=== PATIENT | female | born 1980 | race African-American/Black ===

== ENCOUNTER 2017-03-25 10:26 | Emergency (ER) | payer OTHER ==
[2017-03-25] MEDS ORDERED: HYDROcodone/Acetaminophen 10/325 mg Tablet ONE (11:00)
[2017-03-25] MEDS ORDERED: Azithromycin 250 MG TAB ONE (11:01)
[2017-03-25] MEDS ORDERED: Naproxen 500 MG TAB ONE (11:01)
[2017-03-25] MEDS ORDERED: Neomycin-Polymyxin-Hc 7.5 ML BOT ONE (11:03)
== END 2017-03-25 11:15 | disposition home or self-care (01) ==
LOC: MADERS 10:26
DX: J20.9 Acute bronchitis, unspecified (principal); H60.502 Unspecified acute noninfective otitis externa, left ear; I10 Essential (primary) hypertension; J45.909 Unspecified asthma, uncomplicated; F32.9 Major depressive disorder, single episode, unspecified; Z87.891 Personal history of nicotine dependence; Z79.899 Other long term (current) drug therapy
CPT/HCPCS: 99283

== ENCOUNTER 2017-03-30 12:53 | Emergency (ER) | payer OTHER ==
[2017-03-30] MEDS ORDERED: Ibuprofen 800 MG TAB ONE (13:54)
[2017-03-30] MEDS ORDERED: Ciprofloxacin 500 MG TAB ONE (13:54)
[2017-03-30] MEDS ORDERED: predniSONE 20 MG TAB ONE (13:54)
== END 2017-03-30 14:00 | disposition home or self-care (01) ==
LOC: MADERS 12:53
DX: M26.622 Arthralgia of left temporomandibular joint (principal); J45.909 Unspecified asthma, uncomplicated; I10 Essential (primary) hypertension; F32.9 Major depressive disorder, single episode, unspecified; Z87.891 Personal history of nicotine dependence
CPT/HCPCS: 99283; J7506

== ENCOUNTER 2017-07-03 08:26 | Emergency (ER) | payer OTHER | END 2017-07-03 09:18 | disposition home or self-care (01) | LOC: MADERS 08:26 | DX: L84 Corns and callosities (principal); I10 Essential (primary) hypertension; I73.9 Peripheral vascular disease, unspecified; J45.909 Unspecified asthma, uncomplicated; F32.9 Major depressive disorder, single episode, unspecified; F17.210 Nicotine dependence, cigarettes, uncomplicated; Z76.0 Encounter for issue of repeat prescription | CPT/HCPCS: 99283 ==

== ENCOUNTER 2017-07-15 10:07 | Emergency (ER) | payer OTHER | END 2017-07-15 12:10 | disposition home or self-care (01) | LOC: MADERS 10:07 | DX: J06.9 Acute upper respiratory infection, unspecified (principal); H61.22 Impacted cerumen, left ear; J45.909 Unspecified asthma, uncomplicated; F32.9 Major depressive disorder, single episode, unspecified; F17.210 Nicotine dependence, cigarettes, uncomplicated | CPT/HCPCS: 99283 ==

== ENCOUNTER 2017-08-05 11:29 | Emergency (ER) | payer OTHER | END 2017-08-05 12:20 | disposition home or self-care (01) | LOC: MADERS 11:29 | DX: L84 Corns and callosities (principal); I10 Essential (primary) hypertension; J45.909 Unspecified asthma, uncomplicated; F32.9 Major depressive disorder, single episode, unspecified; F17.210 Nicotine dependence, cigarettes, uncomplicated | CPT/HCPCS: 99283 ==

== ENCOUNTER 2018-07-17 10:18 | Emergency (ER) | payer OTHER | END 2018-07-17 10:40 | disposition home or self-care (01) | LOC: MADERS 10:18 | DX: J45.909 Unspecified asthma, uncomplicated (principal); I10 Essential (primary) hypertension; F17.210 Nicotine dependence, cigarettes, uncomplicated; Z79.899 Other long term (current) drug therapy | CPT/HCPCS: 99284 ==

== ENCOUNTER 2018-09-08 12:40 | Emergency (ER) | payer OTHER | END 2018-09-08 13:30 | disposition home or self-care (01) | LOC: MADERS 12:40 | DX: H66.91 Otitis media, unspecified, right ear (principal); K08.89 Other specified disorders of teeth and supporting structures; G89.29 Other chronic pain; M79.673 Pain in unspecified foot; I10 Essential (primary) hypertension; J45.909 Unspecified asthma, uncomplicated; F32.9 Major depressive disorder, single episode, unspecified; F17.210 Nicotine dependence, cigarettes, uncomplicated; Z79.899 Other long term (current) drug therapy | CPT/HCPCS: 99282 ==

== ENCOUNTER 2018-12-19 07:50 | Emergency (ER) | payer OTHER ==
--- NOTE | 2018-12-19 09:12 | RAD ---
LEFT HAND 3 VIEWS: HISTORY: Hyperextension injury. COMPARISON: None. FINDINGS: There is a round radiopaque foreign object, likely a B-B within the distal radial metaphysis. No acu te displaced fracture or malalignment is appreciated. IMPRESSION: 1. No acute abnormality. 2. Radiopaque likely distal radial metaphysis. POS: [facility]
== END 2018-12-19 08:35 | disposition home or self-care (01) ==
LOC: MADERS 07:50
DX: S63.615A Unspecified sprain of left ring finger, initial encounter (principal); I10 Essential (primary) hypertension; J45.909 Unspecified asthma, uncomplicated; F32.9 Major depressive disorder, single episode, unspecified; F17.210 Nicotine dependence, cigarettes, uncomplicated; Z79.899 Other long term (current) drug therapy; Z79.51 Long term (current) use of inhaled steroids; X58.XXXA Exposure to other specified factors, initial encounter

== ENCOUNTER 2019-05-13 14:39 | Emergency (ER) | payer OTHER | END 2019-05-13 15:10 | disposition left against medical advice (07) | LOC: MADERS 14:39 | DX: Z53.21 Procedure and treatment not carried out due to patient leaving prior to being seen by health care provider (principal) ==

== ENCOUNTER 2019-05-14 09:52 | Emergency (ER) | payer OTHER | END 2019-05-14 10:34 | disposition home or self-care (01) | LOC: MADERS 09:52 | DX: S40.862A Insect bite (nonvenomous) of left upper arm, initial encounter (principal); S40.861A Insect bite (nonvenomous) of right upper arm, initial encounter; S80.862A Insect bite (nonvenomous), left lower leg, initial encounter; S80.861A Insect bite (nonvenomous), right lower leg, initial encounter; K04.7 Periapical abscess without sinus; K02.9 Dental caries, unspecified; W57.XXXA Bitten or stung by nonvenomous insect and other nonvenomous arthropods, initial encounter | CPT/HCPCS: 99283 ==

== ENCOUNTER 2019-05-28 11:08 | Emergency (ER) | payer OTHER | END 2019-05-28 11:45 | disposition home or self-care (01) | LOC: MADERS 11:08 | DX: M62.838 Other muscle spasm (principal); F17.210 Nicotine dependence, cigarettes, uncomplicated; I10 Essential (primary) hypertension; Z79.899 Other long term (current) drug therapy; Z79.01 Long term (current) use of anticoagulants; Z79.51 Long term (current) use of inhaled steroids | CPT/HCPCS: 99281 ==

== ENCOUNTER 2019-12-15 07:58 | Outpatient (CLI) | payer OTHER ==
--- NOTE | 2019-12-15 09:02 | ULT ---
US Renal Bilateral STANDARD HISTORY: Chronic renal disease COMPARISON: None. FINDINGS: The right kidney measures 8.2 cm in length and the left kidney measures 9.6 hemoglobin. No focal mass or hydronephrosis is seen on either side. The urinary bladder is grossly unremarkable. Cortical thickness is normal. There is mild increase in echogenicity of the cortices. IMPRESSION: No evidence of high-grade obstruction.
== END 2019-12-15 07:59 | disposition home or self-care (01) ==
LOC: MADULT 07:58
PROVIDERS: ATTEND Internal Medicine Nephrology
DX: N18.3 Chronic kidney disease, stage 3 (moderate) (principal)
CPT/HCPCS: 76770

== ENCOUNTER 2020-04-14 14:59 | Emergency (ER) | payer OTHER | END 2020-04-14 15:14 | disposition left against medical advice (07) | LOC: MADERS 14:59 | DX: R07.9 Chest pain, unspecified (principal) | CPT/HCPCS: 99284 ==

== ENCOUNTER 2020-04-19 12:27 | Emergency (ER) | payer OTHER ==
--- NOTE | 2020-04-19 13:34 | RAD ---
XR Chest 1 View Portable HISTORY: Chest pain COMPARISON: 04/23/2018 FINDINGS: The heart size is normal. The lungs are well expanded without focal areas of consolidation, pneumothorax or pleural effusions. IMPRESSION: No radiographic evidence of acute cardiopulmonary process.
[2020-04-19 13:54] LABS: ALT (SGPT) 18 U/L (8-55); AST (SGOT) 20 U/L (5-34); Albumin 3.8 g/dL (3.5-5.0); Alkaline Phosphatase 61 U/L (40-110); Anion Gap 14 mmol/L (10-20); BUN (Urea Nitrogen) 17 mg/dL (7.0-18.7); Bilirubin, Total 0.3 mg/dL (0.2-1.2); Calc. Creatinine Clearance 0 mL/min (70-130); Calcium 8.6 mg/dL (7.8-10.44); Carbon Dioxide 23 mmol/L (22-29); Chloride 107 mmol/L (98-107); Estimated GFR-MDRD 65; Globulin 2.9 g/dL (2.4-3.5); Glucose 93 mg/dL (70-105); Potassium 4.1 mmol/L (3.5-5.1); Protein, Total 6.7 g/dL (6.0-8.3); Sodium 140 mmol/L (136-145)
[2020-04-19 14:06] LABS: #Basophils 0.1 thou/uL (0.0-0.2); #Eosinphils 0.4 thou/uL (0.0-0.7); #Lymphocytes 1.2 thou/uL (1.20-3.40); #Monocytes 0.4 thou/uL (0.11-0.59); #Neutrophils 2.8 thou/uL (1.40-6.50); %Basophils 1.1 % (0.0-1.0); %Eosinophils 7.9 % (0.0-10.0); %Lymphocytes 24.8 % (21.0-51.0); %Neutrophils 57.3 % (42.0-75.0); Hemoglobin 12.4 g/dL (12.0-16.0); Mean Corpuscular HGB CONC 31.6 g/dL (32.0-36.0); Mean Platelet Volume 7.7 fL (7.4-10.4); Platelet Count 207 thou/uL (130-400); RBC Distribution Width 12.9 % (11.5-14.5); Red Blood Cell (RBC) Count 4.12 mill/uL (4.20-5.40); White Blood Cell (WBC) Count 4.9 thou/uL (4.8-10.8)
[2020-04-19] MEDS ORDERED: HYDROcodone/Acetaminophen 5/325 mg Tablet ONE (15:19)
[2020-04-19] MEDS ORDERED: Aspirin Chewable 81 MG TAB ONE (15:19)
== END 2020-04-19 15:25 | disposition home or self-care (01) ==
LOC: MADERS 12:27
DX: R07.9 Chest pain, unspecified (principal); R11.10 Vomiting, unspecified
CPT/HCPCS: 71045; 80053; 83880; 84484; 85025; 93005

== ENCOUNTER 2020-08-25 11:43 | Emergency (ER) | payer OTHER ==
[2020-08-25] MEDS ORDERED: predniSONE 20 MG TAB ONE (12:32)
== END 2020-08-25 12:53 | disposition home or self-care (01) ==
LOC: MADERS 11:43
DX: J45.901 Unspecified asthma with (acute) exacerbation (principal); G62.9 Polyneuropathy, unspecified; J45.909 Unspecified asthma, uncomplicated; I12.0 Hypertensive chronic kidney disease with stage 5 chronic kidney disease or end stage renal disease; N18.9 Chronic kidney disease, unspecified; F41.9 Anxiety disorder, unspecified; Z79.51 Long term (current) use of inhaled steroids; Z79.899 Other long term (current) drug therapy
CPT/HCPCS: 99284; J7512; J7620

== ENCOUNTER 2020-09-22 13:02 | Emergency (ER) | payer OTHER ==
[2020-09-23 04:07] LABS: SARS-CoV-2 MS2 Positive; SARS-CoV-2 N Gene Negative; SARS-CoV-2 S Gene Negative; SARS-CoV-2 by NAA Not Detected (NotDetected); SARS-CoV-2 orf1ab Negative
== END 2020-09-22 14:25 | disposition home or self-care (01) ==
LOC: MADERS 13:02
DX: M79.672 Pain in left foot (principal); M79.671 Pain in right foot; G89.29 Other chronic pain; J45.909 Unspecified asthma, uncomplicated; L84 Corns and callosities; I12.9 Hypertensive chronic kidney disease with stage 1 through stage 4 chronic kidney disease, or unspecified chronic kidney disease; N18.9 Chronic kidney disease, unspecified; I73.9 Peripheral vascular disease, unspecified; F41.9 Anxiety disorder, unspecified; Z79.899 Other long term (current) drug therapy; Z79.01 Long term (current) use of anticoagulants
CPT/HCPCS: 87635; 99283; U0003

== ENCOUNTER 2021-03-24 09:14 | Emergency (ER) | payer OTHER | END 2021-03-24 16:21 | disposition home or self-care (01) | LOC: MADERS 09:14 | DX: J45.901 Unspecified asthma with (acute) exacerbation (principal); I12.9 Hypertensive chronic kidney disease with stage 1 through stage 4 chronic kidney disease, or unspecified chronic kidney disease; N18.9 Chronic kidney disease, unspecified; Z79.51 Long term (current) use of inhaled steroids; Z79.899 Other long term (current) drug therapy | CPT/HCPCS: 94640; J7620 ==

== ENCOUNTER 2021-06-16 10:08 | Emergency (ER) | payer OTHER ==
[2021-06-16 10:51] LABS: #Basophils 0.1 thou/uL (0.0-0.2); #Eosinphils 0.2 thou/uL (0.0-0.7); #Lymphocytes 2.1 thou/uL (1.20-3.40); #Monocytes 0.5 thou/uL (0.11-0.59); #Neutrophils 3.1 thou/uL (1.40-6.50); %Basophils 1.1 % (0.0-1.0); %Eosinophils 3.3 % (0.0-10.0); %Lymphocytes 35.5 % (21.0-51.0); %Monocytes 8.2 % (0.0-10.0); %Neutrophils 51.9 % (42.0-75.0); Hemoglobin 12.1 g/dL (12.0-16.0); Mean Corpuscular HGB CONC 32.3 g/dL (32.0-36.0); Mean Corpuscular Hemoglobin 31.4 pg (27.0-31.0); Mean Platelet Volume 7.2 fL (7.4-10.4); Platelet Count 215 thou/uL (130-400); RBC Distribution Width 12.1 % (11.5-14.5); Red Blood Cell (RBC) Count 3.86 mill/uL (4.20-5.40); White Blood Cell (WBC) Count 5.9 thou/uL (4.8-10.8)
[2021-06-16] MEDS ORDERED: Nitroglycerin 2% Ointment 1 INCH/1 GM Packet ONE (10:55)
[2021-06-16] MEDS ORDERED: Sodium Chloride 0.9% 1,000 ML ONE (10:55)
[2021-06-16] MEDS ORDERED: Lidocaine Viscous Sol 2% 15 ml UD Cup ONE (10:56)
[2021-06-16] MEDS ORDERED: Mag-Al Plus 1200 MG/1200 MG/120 MG/30 ML UDCUP ONE (10:56)
[2021-06-16] MEDS ORDERED: Aspirin Chewable 81 MG TAB ONE (10:56)
[2021-06-16 11:00] LABS: BHCG - Serum Negative (NEGATIVE); Pregs Control Background? CLEAR/WHITE (CLR/WHITE); Pregs Control Bar Appear? YES (CONTROL BAR)
[2021-06-16 11:11] LABS: ALT (SGPT) 17 U/L (8-55); AST (SGOT) 22 U/L (5-34); Albumin 3.9 g/dL (3.5-5.0); Alkaline Phosphatase 48 U/L (40-110); Anion Gap 14 mmol/L (10-20); BUN (Urea Nitrogen) 16 mg/dL (7.0-18.7); Bilirubin, Total 0.7 mg/dL (0.2-1.2); CK (CPK) 105 U/L (29-168); Calc. Creatinine Clearance 0 mL/min (70-130); Carbon Dioxide 23 mmol/L (22-29); Chloride 105 mmol/L (98-107); Glucose 80 mg/dL (70-105); Lipase 9 U/L (8-78); Potassium 3.6 mmol/L (3.5-5.1); Protein, Total 6.9 g/dL (6.0-8.3); Sodium 138 mmol/L (136-145)
[2021-06-16 12:12] LABS: Troponin I Less than 0.010 ng/mL (< 0.028)
== END 2021-06-16 12:51 | disposition home or self-care (01) ==
LOC: MADERS 10:08
DX: R07.2 Precordial pain (principal); I12.9 Hypertensive chronic kidney disease with stage 1 through stage 4 chronic kidney disease, or unspecified chronic kidney disease; N18.9 Chronic kidney disease, unspecified; I73.9 Peripheral vascular disease, unspecified; F17.210 Nicotine dependence, cigarettes, uncomplicated; J45.909 Unspecified asthma, uncomplicated
CPT/HCPCS: 71045; 80053; 82550; 83690; 84484; 84703; 85025; 93005; J7050

== ENCOUNTER 2022-02-23 09:33 | Emergency (ER) | payer OTHER | END 2022-02-23 10:20 | disposition home or self-care (01) | LOC: MADERS 09:33 | DX: M79.601 Pain in right arm (principal); G89.29 Other chronic pain; J45.909 Unspecified asthma, uncomplicated; I12.9 Hypertensive chronic kidney disease with stage 1 through stage 4 chronic kidney disease, or unspecified chronic kidney disease; N18.9 Chronic kidney disease, unspecified; F17.210 Nicotine dependence, cigarettes, uncomplicated ==

== ENCOUNTER 2022-05-13 12:59 | Emergency (ER) | payer OTHER ==
[2022-05-13] MEDS ORDERED: Ibuprofen 600 MG TAB ONE (13:20)
[2022-05-13] MEDS ORDERED: Boostrix 0.5 ML (Tdap) VIAL ONE (13:20)
== END 2022-05-13 13:43 | disposition home or self-care (01) ==
LOC: MADERS 12:59
DX: S81.801A Unspecified open wound, right lower leg, initial encounter (principal); I12.9 Hypertensive chronic kidney disease with stage 1 through stage 4 chronic kidney disease, or unspecified chronic kidney disease; N18.9 Chronic kidney disease, unspecified; F17.210 Nicotine dependence, cigarettes, uncomplicated; I73.9 Peripheral vascular disease, unspecified; J45.909 Unspecified asthma, uncomplicated; W54.0XXA Bitten by dog, initial encounter; Z23 Encounter for immunization; Z79.899 Other long term (current) drug therapy
CPT/HCPCS: 90471; 90715

== ENCOUNTER 2022-10-02 17:14 | Emergency (ER) | payer OTHER ==
[2022-10-02] MEDS ORDERED: Ketorolac Tromethamine 60 MG/2 ML VIAL ONE (17:38)
[2022-10-02] MEDS ORDERED: Dexamethasone 10 MG/ML VIAL ONE (17:38)
== END 2022-10-02 18:00 | disposition home or self-care (01) ==
LOC: MADERS 17:14
DX: J06.9 Acute upper respiratory infection, unspecified (principal); I12.9 Hypertensive chronic kidney disease with stage 1 through stage 4 chronic kidney disease, or unspecified chronic kidney disease; N18.9 Chronic kidney disease, unspecified; J45.909 Unspecified asthma, uncomplicated; Z79.899 Other long term (current) drug therapy
CPT/HCPCS: 71045; 87081; 87430; 96372; J1100; J1885

== ENCOUNTER 2023-02-01 10:51 | Emergency (ER) | payer OTHER | END 2023-02-01 12:32 | disposition home or self-care (01) | LOC: MADERS 10:51 | DX: R05.9 Cough, unspecified (principal); I12.9 Hypertensive chronic kidney disease with stage 1 through stage 4 chronic kidney disease, or unspecified chronic kidney disease; N18.9 Chronic kidney disease, unspecified; I73.9 Peripheral vascular disease, unspecified; F17.210 Nicotine dependence, cigarettes, uncomplicated; J45.909 Unspecified asthma, uncomplicated; Z79.899 Other long term (current) drug therapy | CPT/HCPCS: 99283 ==

== ENCOUNTER 2023-02-11 20:19 | Emergency (ER) | payer OTHER ==
[2023-02-11] MEDS ORDERED: Lidocaine 1% PF 5 ML VIAL ONE (20:35)
[2023-02-11] MEDS ORDERED: Cephalexin 500 MG CAP ONE (20:35)
[2023-02-11] MEDS ORDERED: Boostrix 0.5 ML (Tdap) VIAL (>/=7 yrs of age) ONE (20:35)
[2023-02-11] MEDS ORDERED: Bacitracin 1 PK ONE (20:35)
[2023-02-11 21:12] LABS: Bacteria/HPF 1+ HPF (None Seen); Bilirubin Negative (Negative); Blood, Urine Negative (Negative); Clarity Clear (Clear); Glucose, Urine (Dipstick) Negative (Negative); Ketone, Urine Negative (Negative); Leukocyte Trace (Negative); Nitrite Negative (Negative); Protein, Urine (Dipstick) Negative (Neg-Trace); RBC/HPF None Seen HPF (0-3); Urobilinogen 0.2 mg/dL (Less than 2)
[2023-02-11 21:13] LABS: Pregnancy Test - Urine (BHCG) Negative (Negative); Pregu Control Background? CLEAR/WHITE (CLR/WHITE); Pregu Control Bar Appear? YES (CONTROL BAR)
[2023-02-11 21:23] LABS: #Eosinphils 0.3 thou/uL (0.0-0.7); #Lymphocytes 1.2 thou/uL (1.20-3.40); #Monocytes 0.5 thou/uL (0.11-0.59); #Neutrophils 4.1 thou/uL (1.40-6.50); %Basophils 0.5 % (0.0-1.0); %Eosinophils 4.6 % (0.0-10.0); %Lymphocytes 19.8 % (21.0-51.0); %Monocytes 7.9 % (0.0-10.0); %Neutrophils 67.2 % (42.0-75.0); Hemoglobin 13.4 g/dL (12.0-16.0); Mean Corpuscular HGB CONC 31.9 g/dL (32.0-36.0); Mean Corpuscular Hemoglobin 30.8 pg (27.0-31.0); Mean Corpuscular Volume 96.3 fl (78.0-98.0); Mean Platelet Volume 8.2 fL (7.4-10.4); Platelet Count 251 10x3/uL (130-400); RBC Distribution Width 12.2 % (11.5-14.5); Red Blood Cell (RBC) Count 4.35 mill/uL (4.20-5.40)
[2023-02-11] MEDS ORDERED: Lactated Ringer's 1,000 ML ONE (21:36)
[2023-02-11] MEDS ORDERED: Ketorolac Tromethamine 30 MG/ML VIAL ONE (21:36)
[2023-02-11 21:47] LABS: ALT (SGPT) 14 U/L (8-55); AST (SGOT) 17 U/L (5-34); Albumin 4.3 g/dL (3.5-5.0); Alkaline Phosphatase 64 U/L (40-110); Anion Gap 15 mmol/L (10-20); BUN (Urea Nitrogen) 23 mg/dL (7.0-18.7); Bilirubin, Total 0.5 mg/dL (0.2-1.2); Calc. Creatinine Clearance 0 mL/min (70-130); Calcium 10.2 mg/dL (7.8-10.44); Carbon Dioxide 22 mmol/L (22-29); Chloride 105 mmol/L (98-107); Estimated GFR 61; Globulin 3.2 g/dL (2.4-3.5); Glucose 97 mg/dL (70-105); Lipase 87 U/L (8-78); Magnesium 1.6 mg/dL (1.6-2.6); Potassium 4.1 mmol/L (3.5-5.1); Protein, Total 7.5 g/dL (6.0-8.3)
[2023-02-11 21:56] LABS: Sodium 138 mmol/L (136-145)
== END 2023-02-11 22:18 | disposition home or self-care (01) ==
LOC: MADERS 20:19
DX: R10.9 Unspecified abdominal pain (principal); M79.10 Myalgia, unspecified site; R10.30 Lower abdominal pain, unspecified; I12.9 Hypertensive chronic kidney disease with stage 1 through stage 4 chronic kidney disease, or unspecified chronic kidney disease; N18.9 Chronic kidney disease, unspecified; F17.210 Nicotine dependence, cigarettes, uncomplicated; Z79.899 Other long term (current) drug therapy
CPT/HCPCS: 74176; 80053; 81003; 81015; 81025; 83690; 83735; 85025; 87077; 87086; 90715; 96374; J1885; J7120

== ENCOUNTER 2023-06-28 08:53 | Emergency (ER) | payer OTHER ==
[2023-06-28] MEDS ORDERED: Ipratropium/Albuterol 3 ML NEB ONE (09:31)
== END 2023-06-28 09:47 | disposition home or self-care (01) ==
LOC: MADERS 08:53
DX: J01.00 Acute maxillary sinusitis, unspecified (principal); J44.1 Chronic obstructive pulmonary disease with (acute) exacerbation; I12.9 Hypertensive chronic kidney disease with stage 1 through stage 4 chronic kidney disease, or unspecified chronic kidney disease; N18.9 Chronic kidney disease, unspecified; F17.210 Nicotine dependence, cigarettes, uncomplicated; Z79.899 Other long term (current) drug therapy
CPT/HCPCS: J7620

== ENCOUNTER 2023-10-07 22:03 | Emergency (ER) | payer OTHER | END 2023-10-07 23:10 | disposition home or self-care (01) | LOC: MADERS 22:03 | DX: F41.9 Anxiety disorder, unspecified (principal); R06.00 Dyspnea, unspecified; I12.9 Hypertensive chronic kidney disease with stage 1 through stage 4 chronic kidney disease, or unspecified chronic kidney disease; N18.9 Chronic kidney disease, unspecified; J45.909 Unspecified asthma, uncomplicated; F17.210 Nicotine dependence, cigarettes, uncomplicated; Z79.899 Other long term (current) drug therapy | CPT/HCPCS: 99284 ==

== ENCOUNTER 2024-08-15 09:56 | Emergency (ER) | payer OTHER | END 2024-08-15 10:35 | disposition home or self-care (01) | LOC: MADERS 09:56 | DX: M19.011 Primary osteoarthritis, right shoulder (principal); I12.9 Hypertensive chronic kidney disease with stage 1 through stage 4 chronic kidney disease, or unspecified chronic kidney disease; N18.9 Chronic kidney disease, unspecified | CPT/HCPCS: 99284 ==

== ENCOUNTER 2024-11-06 09:17 | Emergency (ER) | payer OTHER ==
[2024-11-06] MEDS ORDERED: Bupivacaine PF 0.5% 30 ML VIAL ONE (09:54)
== END 2024-11-06 10:16 | disposition home or self-care (01) ==
LOC: MADERS 09:17
DX: K08.89 Other specified disorders of teeth and supporting structures (principal); I13.0 Hypertensive heart and chronic kidney disease with heart failure and stage 1 through stage 4 chronic kidney disease, or unspecified chronic kidney disease; I50.9 Heart failure, unspecified; N18.9 Chronic kidney disease, unspecified; J45.909 Unspecified asthma, uncomplicated; J44.9 Chronic obstructive pulmonary disease, unspecified; F17.210 Nicotine dependence, cigarettes, uncomplicated; Z79.899 Other long term (current) drug therapy
CPT/HCPCS: 99282; J0665

== ENCOUNTER 2025-06-01 07:37 | Emergency (ER) | payer OTHER | END 2025-06-01 09:13 | disposition home or self-care (01) | LOC: MADERS 07:37 | DX: I13.0 Hypertensive heart and chronic kidney disease with heart failure and stage 1 through stage 4 chronic kidney disease, or unspecified chronic kidney disease (principal); I50.9 Heart failure, unspecified; N18.6 End stage renal disease; J44.9 Chronic obstructive pulmonary disease, unspecified; J45.909 Unspecified asthma, uncomplicated; F17.210 Nicotine dependence, cigarettes, uncomplicated; Z79.51 Long term (current) use of inhaled steroids; Z79.899 Other long term (current) drug therapy | CPT/HCPCS: 99284 ==

== ENCOUNTER 2025-06-14 11:33 | Emergency (ER) | payer OTHER ==
[2025-06-14 11:58] LABS: Glucose, Urine (Dipstick) Negative (Negative); Leukocyte Negative (Negative); Protein, Urine (Dipstick) > or equal to 300 mg/dL (Neg-Trace); Specific Gravity, Urine 1.025 (1.005-1.030)
[2025-06-14 12:03] LABS: Pregnancy Test - Urine (BHCG) Negative (Negative); Pregu Control Background? CLEAR/WHITE (CLR/WHITE); Pregu Control Bar Appear? YES (CONTROL BAR)
[2025-06-14 12:08] LABS: CAUTI Indications for Culture Pelvic or flank pain; RBC/HPF 0-3 HPF (0-3)
[2025-06-14 12:09] LABS: Bacteria/HPF Rare-Few HPF (None Seen); WBC/HPF 0-3 HPF (0-3)
[2025-06-14 12:10] LABS: Urine Culture Reflex No No
[2025-06-14 12:20] LABS: #Basophils 0.1 thou/uL (0.0-0.2); #Eosinophils 0.3 thou/uL (0.0-0.7); #Lymphocytes 1.4 thou/uL (1.20-3.40); #Monocytes 0.6 thou/uL (0.11-0.59); #Neutrophils 3.9 thou/uL (1.40-6.50); %Basophils 1.1 % (0.0-1.0); %Eosinophils 4.2 % (0.0-10.0); %Lymphocytes 22.0 % (21.0-51.0); %Monocytes 9.7 % (0.0-10.0); %Neutrophils 63.1 % (42.0-75.0); Hematocrit 35.8 % (36.0-47.0); Hemoglobin 10.6 g/dL (12.0-16.0); Mean Corpuscular Hemoglobin 24.8 pg (27.0-31.0); Mean Corpuscular Volume 83.4 fl (78.0-98.0); Platelet Count 240 10x3/uL (130-400); Red Blood Cell (RBC) Count 4.23 mill/uL (4.20-5.40); White Blood Cell (WBC) Count 6.2 10x3/uL (4.8-10.8)
[2025-06-14 12:26] LABS: ALT (SGPT) 108 U/L (Less than 34); AST (SGOT) 112 U/L (11-34); Albumin 3.0 g/dL (3.1-4.5); Alkaline Phosphatase 249 U/L (40-110); Anion Gap 15 mmol/L (10-20); BUN (Urea Nitrogen) 22 mg/dL (7.0-18.7); Bilirubin, Total 1.1 mg/dL (0.3-1.2); Calc. Creatinine Clearance 0 mL/min (70-130); Calcium 9.0 mg/dL (7.8-10.44); Carbon Dioxide 25 mmol/L (22-29); Chloride 104 mmol/L (98-107); Globulin 3.8 g/dL (2.4-3.5); Glucose 105 mg/dL (70-105); Potassium 4.1 mmol/L (3.5-5.1); Sodium 140 mmol/L (136-145)
== END 2025-06-14 12:45 | disposition home or self-care (01) ==
LOC: MADERS 11:33
DX: S39.012A Strain of muscle, fascia and tendon of lower back, initial encounter (principal); I13.0 Hypertensive heart and chronic kidney disease with heart failure and stage 1 through stage 4 chronic kidney disease, or unspecified chronic kidney disease; N18.9 Chronic kidney disease, unspecified; I50.9 Heart failure, unspecified; J44.9 Chronic obstructive pulmonary disease, unspecified; F17.210 Nicotine dependence, cigarettes, uncomplicated; X58.XXXA Exposure to other specified factors, initial encounter
CPT/HCPCS: 36415; 80053; 81001; 81025; 85025; 99283; J1885